=== PATIENT | male | born 1995 | race Caucasian/White ===

== ENCOUNTER 2018-04-14 12:48 | Emergency (ER) | payer OTHER ==
[2018-04-14 13:08] VITALS: BP 146/91
--- NOTE | 2018-04-14 13:14 | UC ---
Ear Complaint HPI - HPI Summary HPI Summary: 22-year-old male comes in with a chief complaint of right ear pain. He's had upper respiratory tract infection symptoms with rhinorrhea and nasal congestion and sore throat for several days. Overnight he had right ear pain that was moderate to severe. Early in the morning around 3 AM he took some ibuprofen which decreased the pain was able to sleep and then when he woke up the pain was almost gone. He still feels like the hearing is slightly decreased in the right ear. No trauma. Not a swimmer. He has had fevers. - History of Current Complaint Chief Complaint: UCEar Stated Complaint: FEVER,EAR PAIN Time Seen by Provider: 04/14/18 13:03 Pain Intensity: 1 - Allergies/Home Medications Allergies/Adverse Reactions: Allergies Allergy/AdvReac Type Severity Reaction Status Date / Time Penicillins Allergy Rash Verified 04/14/18 13:00 PMH/Surg Hx/FS Hx/Imm Hx Previously Healthy: Yes - Surgical History Surgical History: None - Family History Known Family History: Positive: Non-Contributory - Social History Alcohol Use: None Substance Use Type: None Smoking Status (MU): Never Smoked Tobacco Review of Systems All Other Systems Reviewed And Are Negative: Yes Constitutional: Positive: Fever Skin: Positive: Negative Eyes: Positive: Negative ENT: Positive: Sore Throat, Ear Ache, Nasal Discharge, Sinus Congestion Respiratory: Positive: Negative Cardiovascular: Positive: Negative Gastrointestinal: Positive: Negative Motor: Positive: Negative Neurovascular: Positive: Negative Musculoskeletal: Positive: Negative Neurological: Positive: Negative Psychological: Positive: Negative Is Patient Immunocompromised?: No Physical Exam Triage Information Reviewed: Yes Appearance: No Pain Distress, Well-Nourished, Ill-Appearing - MILD Vital Signs: Initial Vital Signs Temp 97 F 04/14/18 13:01 Pulse 68 04/14/18 13:01 Resp 18 04/14/18 13:01 BP 146/91 04/14/18 13:01 Pulse Ox 98 04/14/18 13:01 Vital Signs Reviewed: Yes Eye Exam: Normal Eyes: Positive: Conjunctiva Clear ENT: Positive: Pharyngeal erythema, Nasal congestion, Nasal drainage, TM red - RIGHT AND BULGING Neck exam: Normal Neck: Positive: Supple Respiratory: Positive: Lungs clear, Normal breath sounds, No respiratory distress Cardiovascular: Positive: RRR Musculoskeletal Exam: Normal Musculoskeletal: Positive: Strength Intact, ROM Intact Neurological Exam: Normal Neurological: Positive: Alert, Muscle Tone Normal Psychological Exam: Normal Psychological: Positive: Age Appropriate Behavior Skin Exam: Normal Ear Complaint Course/Dx - Differential Dx/Diagnosis Provider Diagnosis: Right otitis media Discharge - Sign-Out/Discharge Documenting (check all that apply): Patient Departure All imaging exams completed and their final reports reviewed: No Studies - Discharge Plan Condition: Stable Disposition: HOME Prescriptions: Cefdinir [Cefdinir 300 MG CAP] 300 mg PO BID #20 capsule Patient Education Materials: Ear Infection (ED) Referrals: [facility] [Outside] Additional Instructions: FOLLOW UP WITH YOUR DOCTOR IF NOT COMPLETELY IMPROVED. GET RECHECKED FOR ANY WORSENING OF YOUR CONDITION OR QUESTIONS OR CONCERNS. - Billing Disposition and Condition Condition: STABLE Disposition: Home
== END 2018-04-14 13:25 | disposition home or self-care (01) ==
LOC: UCEAST 12:48
DX: H66.91 Otitis media, unspecified, right ear (principal); Z88.0 Allergy status to penicillin
CPT/HCPCS: 99202; G0463

== ENCOUNTER 2019-02-09 06:55 | Emergency (ER) | payer OTHER ==
--- NOTE | 2019-02-09 07:34 | ED ---
HPI Chest Pain - HPI Summary HPI Summary: Pt. is a 23 y.o male who presents to the ER for chest pressure that started last night. Pt. notes pain occasionally radiates into left arm with nausea. Jimmy past medical hx. Denies recent illness, cough, fever, abd. pain, V/D. Denies known family hx of CAD. Notes occasional ETOH use. Denies drug use. Sxs are moderate in severity. No current modifying factors. - History of Current Complaint Chief Complaint: EDChestPainROMI Time Seen by Provider: 02/09/19 07:17 Hx Obtained From: Patient Pain Intensity: 3 - Allergy/Home Medications Allergies/Adverse Reactions: Allergies Allergy/AdvReac Type Severity Reaction Status Date / Time Penicillins Allergy Rash Verified 02/09/19 07:01 Home Medications: Home Medications NK [No Home Medications Reported] 02/09/19 [History Confirmed 02/09/19] PMH/Surg Hx/FS Hx/Imm Hx Previously Healthy: Yes Infectious Disease History: No Infectious Disease History: Denies: Traveled Outside the [place] in Last 30 Days - Family History Known Family History: Positive: Non-Contributory Negative: Cardiac Disease - Social History Occupation: Student Lives: Dormitory/Roommates Alcohol Use: Occasionally Substance Use Type: Reports: None Smoking Status (MU): Never Smoked Tobacco Review of Systems Constitutional: Negative Negative: Fever, Chills Eyes: Negative ENT: Negative Positive: Chest Pain. Negative: Palpitations Respiratory: Negative Negative: Shortness Of Breath, Cough Positive: Nausea. Negative: Abdominal Pain, Vomiting, Diarrhea Genitourinary: Negative Musculoskeletal: Negative Skin: Negative Negative: Rash Neurological: Negative All Other Systems Reviewed And Are Negative: Yes Physical Exam Triage Information Reviewed: Yes Vital Signs On Initial Exam: Initial Vitals Temp Pulse Resp BP Pulse Ox 98.8 F 72 16 163/95 98 02/09/19 06:57 02/09/19 06:57 02/09/19 06:57 02/09/19 06:57 02/09/19 06:57 Vital Signs Reviewed: Yes Appearance: Positive: Well-Appearing - Pt. sitting up in bed in NAD. Skin: Positive: Warm, Dry Head/Face: Positive: Normal Head/Face Inspection Eyes: Positive: Normal, EOMI, VIKA ENT: Positive: Pharynx normal, TMs normal Neck: Positive: Supple Respiratory/Lung Sounds: Positive: Clear to Auscultation, Breath Sounds Present. Negative: Rales, Rhonchi, Wheezes Cardiovascular: Positive: Normal, RRR. Negative: Tachycardia Abdomen Description: Positive: Nontender, Soft Neurological: Positive: Normal, CN Intact II-III Psychiatric: Positive: Affect/Mood Appropriate Procedures - Sedation Patient Received Moderate/Deep Sedation with Procedure: No Diagnostics - Vital Signs Vital Signs Temp Pulse Resp BP Pulse Ox 02/09/19 06:57 98.8 F 72 16 163/95 98 - Laboratory Result Diagrams: 02/09/19 07:41 02/09/19 07:41 Lab Statement: Any lab studies that have been ordered have been reviewed, and results considered in the medical decision making process. Chest Pain Course/Dx - Course Course Of Treatment: Pt. presenting for evaluation of chest pressure. He is afebrile with normal VS. ECG done at 0703 shows a sinus rhythm of 73 bpm, normal axis, early repolarization, no STEMI. Chest xray is negative for acute findings per radiology. Labs unremarkable. Concern for cardiopulmonary etiology very low given age and workup. Will have pt. f.u with [facility] if sxs persist. Will return to er if sxs change or worsen. Pt. understands and agrees with plan. - Chest Pain Differential Diagnosis/HQI/PQRI: ACS, CHF, Chest Wall, Lower Respiratory Infection - Diagnoses Provider Diagnoses: Atypical chest pain Discharge ED - Sign-Out/Discharge Documenting (check all that apply): Patient Departure - Discharge Plan Condition: Good Disposition: HOME Patient Education Materials: Chest Pain (ED) Referrals: [facility] @ [Outside] Additional Instructions: Schedule a follow up appointment with [facility] if symptoms persist Return to ER is symptoms change or worsen - Billing Disposition and Condition Condition: GOOD Disposition: Home
[2019-02-09 07:54] LABS: ABS Eosinophils 0.1 10^3/ul (0-0.6); ABS Lymphocytes 1.8 10^3/ul (1.0-4.8); ABS Monocytes 0.5 10^3/ul (0-0.8); Eosinophil % 1.3 %; Hematocrit 45 % (42-52); Hemoglobin 15.2 g/dL (14.0-18.0); Lymphocyte % 41.9 %; Mean Corpuscular HGB Conc 34 g/dL (31-36); Mean Corpuscular Hemoglobin 32 pg (27-31); Mean Corpuscular Volume 93 fL (80-94); Mean Platelet Volume 8.7 fL (7.4-10.4); Platelet Count 188 10^3/uL (150-450); Red Blood Count 4.81 10^6 /uL (4.18-5.48); Red Cell Distribution Width 13 % (10-15); White Blood Count 4.3 10^3/uL (3.5-10.8)
[2019-02-09 08:05] LABS: ALT 19 U/L (7-52); AST 18 U/L (13-39); Albumin 4.7 g/dL (3.2-5.2); Albumin/Globulin Ratio 2.1 (1-3); Alkaline Phosphatase 52 U/L (34-104); Anion Gap 5 mmol/L (2-11); BUN/Creatinine Ratio 20.4 (8-20); Blood Urea Nitrogen 21 mg/dL (6-24); C Reactive Protein < 1.00 mg/L (<8.01); CO2 Carbon Dioxide 29 mmol/L (22-32); Calcium 9.5 mg/dL (8.6-10.3); Chloride 106 mmol/L (101-111); EGFR African American 110.3 (>60); EGFR Non-African American 91.2 (>60); Globulin 2.2 g/dL (2-4); Glucose 94 mg/dL (70-100); Potassium 3.9 mmol/L (3.5-5.0); Sodium 140 mmol/L (135-145); Total Protein 6.9 g/dL (6.4-8.9)
[2019-02-09 08:47] VITALS: BP 140/91
== END 2019-02-09 08:45 | disposition home or self-care (01) ==
LOC: ED 06:55
DX: R07.89 Other chest pain (principal); Z88.0 Allergy status to penicillin
CPT/HCPCS: 36415; 71045; 80053; 84484; 85025; 86140; 93005; 99283